=== PATIENT | male | born 1950 | race Caucasian/White ===

== ENCOUNTER → 2017-01-05 | Outpatient (CLI) | payer BC ==
[~2017-01-05] MED LIST: GADOBUTROL 10 ML VIAL IVP ONE; IOPAMIDOL (ISOVUE 370) 100 ML BTL IV ONE
== END ==
LOC: FIMAGING 11:58
PROVIDERS: ATTEND Internal Medicine
DX: H53.40 Unspecified visual field defects (principal); G31.9 Degenerative disease of nervous system, unspecified; I65.22 Occlusion and stenosis of left carotid artery; M50.31 Other cervical disc degeneration, high cervical region
CPT/HCPCS: A9585; Q9967

== ENCOUNTER 2017-03-02 13:44 | Day surgery (SDC) | payer BC ==
[2017-03-02] MEDS ORDERED: MIDAZOLAM 2 MG/2 ML VIAL IVP ONE (13:50)
[2017-03-02] MEDS ORDERED: BENZOCAINE UNIT DOSE SPRAY HURRICAINE MM ONE (13:50)
[2017-03-02] MEDS ORDERED: fentaNYL 100 MCG/2 ML INJ IVP ONE (13:50)
[2017-03-02] MEDS ORDERED: NS 1,000 ML IV ONE (13:50)
[2017-03-02] MEDS ORDERED: LIDOCAINE 1% 300 MG/30 ML SDV ONE (14:38)
[2017-03-02] MEDS ORDERED: LIDOCAINE 1% 300 MG/30 ML SDV IF ONE (15:00)
[2017-03-02] MEDS ORDERED: PROPOFOL 200 MG/20 ML VIAL ONE (15:47)
[2017-03-02] MEDS ORDERED: PROPOFOL/EMULSION 500 MG/50 ML BOTTLE IV ONE (16:42)
--- NOTE | 2017-03-02 20:40 | GPN ---
[f rep st] PROCEDURE NOTE DATE OF PROCEDURE: 03/02/2017 PROCEDURE PERFORMED: Implantable loop recorder. INDICATION FOR PROCEDURE: Cryptogenic stroke. HISTORY OF PRESENT ILLNESS: The patient is a pleasant 67-year-old gentleman with recent neurologic event consistent with cryptogenic stroke. He has no history of atrial fibrillation but has risk fac tors for atrial fibrillation. Workup to date did not demonstrate any atrial fibrillation on Holter monitoring, and subsequently has been arranged for implantable loop recorder. DESCRIPTION OF PROCEDURE: After informed consent was obtained, patient was prepped and draped in a sterile fashion. Using 1% lidocaine, the 5th intercostal space, 2 cm from midline was anesthetized with 1% lidocaine without epinephrine. Once appropriate level of localized anesthesia to the skin w as obtained, incision was made with the scalpel provided in the [employer] implantable loop recorder kit. This incision was modified with a scalpel blade. The loop recorder was inserted. Tract was m cain with the device. Device was deployed successfully without complications in appropriate position . Hemostasis was achieved. Steri-Strips were applied. A sterile dressing with Tegaderm was applie d. Postprocedure, device was interrogated demonstrating appropriate capture of P-waves. Standardiz ed settings were obtained. The patient tolerated the procedure well without incident. CONCLUSION: 1. Successful implantable loop recorder deployment. 2. [employer] implantable loop LINQ device. PLAN: 1. Patient will follow up in the office in 1 week for wound and device check. 2. Patient has been given postoperative wound instructions. /[id number]/MODL
--- NOTE | 2017-03-02 20:45 | GPN ---
[f rep st] PROCEDURE NOTE DATE OF PROCEDURE: 03/02/2017 PROCEDURE PERFORMED: Transesophageal echocardiogram. INDICATION FOR THE PROCEDURE: History of cryptogenic stroke and evidence of patent foramen ovale on transthoracic echocardiogram. After an informed consent was obtained for both BARI and anesthesia, the patient was prepped for a tr ansesophageal echocardiogram. With the assistance of anesthesia, he received propofol for sedation. Once appropriate level of sedation was achieved, BARI probe was passed without incident. He did malloy ve a brief period where oxygen saturations drifted into the 60s, requiring removal of BARI probe and brief period of bagging respirations with supplemental oxygen. Once oxygen levels normalized, BARI p robe was again reinserted without complications. BARI probe was used to take images of all cardiac s tructures. Please see complete echocardiogram report for full details. Agitated saline contrast study was performed, demonstrating shunting from the right to the left atri um. FINDINGS: Consistent with patent foramen ovale. There are no other significant abnormalities noted . BARI probe was removed without incident. There were no postprocedure complications. At the time of this dictation, he was awaking from propofol without incident. FINDINGS: 1. Atrial septal aneurysm. 2. Patent foraminal ovale with positive agitated saline contrast study. PLAN: 1. Patient will follow up in the office as an outpatient. 2. Implantable loop recorder has been placed earlier today to monitor heart rates in the setting of cryptogenic stroke. /[id number]/MODL
--- NOTE | 2017-03-06 10:52 | ECHO ---
[id number] + + [address] : : [place] [address] : : [phone] + + Transesophageal Echocardiographic Report + ----+ :Name: SHERRI GRAHAM Date: 03/02/2017 03:15 PM : : Hospital Admission Number: [id number] Location: [facility]: :: 1950 Gender: Male : :Age: 67 yrs Race: WH : :Reason For Study: R/O thrombus : + ----+ Left Ventricle The left ventricle is borderline dilated. Left ventricular systolic function is normal. Ejection Fraction = 60-65%%. Right Ventricle The right ventricular systolic function is normal. Atria The atrial septum is aneurysmal. Injection of contrast documented an interatrial shunt. A patent foramen ovale is present. No thrombus is detected in the left atrial appendage. Mitral Valve The mitral valve is normal in structure and function. There is no evidence of mitral valve prolapse. There is trace mitral regurgitation. Tricuspid Valve The tricuspid valve is normal in structure and function. Aortic Valve The aortic valve is trileaflet. There is no aortic insufficiency. Vessels Mild atherosclerotic plaque(s) in the ascending aorta. Pericardium There is no pericardial effusion. Conclusion A 2D transesophageal echocardiogram with color flow Doppler was performed. The atrial septum is aneurysmal. No thrombus is detected in the left atrial appendage. There is trace mitral regurgitation. Mild atherosclerotic plaque(s) in the ascending aorta. Injection of contrast documented an interatrial shunt. A patent foramen ovale is present. The left ventricle is borderline dilated. Left ventricular systolic function is normal. Ejection Fraction = 60-65%%. Final Reading Physician: Joey Vides electronically signed on 03/06/2017 10:51 AM Ordering Physician: Joey Vides Performed By: Joey Vides
== END 2017-03-02 18:39 | disposition home or self-care (01) ==
LOC: FCATH 13:44
PROVIDERS: ATTEND Internal Medicine Cardiovascular Disease
PROC: 0JH Subcutaneous Tissue and Fascia, Insertion (ICD-10-PCS; principal; 2017-03-02)
PROC: B246ZZ4 Ultrasonography of Right and Left Heart, Transesophageal (ICD-10-PCS; 2017-03-02)
DX: Q21.1 Atrial septal defect (principal); I25.3 Aneurysm of heart; I69.398 Other sequelae of cerebral infarction; H53.8 Other visual disturbances; I10 Essential (primary) hypertension; I77.9 Disorder of arteries and arterioles, unspecified; G43.909 Migraine, unspecified, not intractable, without status migrainosus; E55.9 Vitamin D deficiency, unspecified; E78.5 Hyperlipidemia, unspecified; G47.33 Obstructive sleep apnea (adult) (pediatric); E66.9 Obesity, unspecified; Z68.33 Body mass index [BMI] 33.0-33.9, adult; Z79.82 Long term (current) use of aspirin; Z82.49 Family history of ischemic heart disease and other diseases of the circulatory system
CPT/HCPCS: C1764; J2704

== ENCOUNTER 2017-05-20 12:29 | Day surgery (SDC) | payer BC ==
[2017-05-20] MEDS ORDERED: LIDOCAINE 1% 300 MG/30 ML SDV ONE (12:45)
[2017-05-20] MEDS ORDERED: BACITRACIN IRRIGATION/NS 50,000 UNITS/1,000 ML BTL IRR ONE (13:15)
--- NOTE | 2017-05-20 14:20 | GPN ---
[f rep st] PROCEDURE NOTE DATE OF PROCEDURE: 05/20/2017 [employer]: CHERYL Rai. ANESTHESIA: None. PREOPERATIVE DIAGNOSIS: LINQ device eroding through skin. POSTOPERATIVE DIAGNOSIS: LINQ device eroding through skin. NAME OF PROCEDURE: Excision of LINQ device, left chest. ESTIMATED BLOOD LOSS: 5 cc. SPECIMENS: None. INDICATIONS: The patient is a 67-year-old man who had a LINQ device placed for cardiac monitoring. It eroded through the skin. He presents for removal. DESCRIPTION OF PROCEDURE: The patient was in CVC. He was consented for the procedure. A time-out was performed. I prepped the skin with chlorhexidine and draped it with towels. I made a longitudi nal incision over the device. I excised the device and then excised the encapsulating area. Hemost asis was achieved with direct pressure. Mildred, Hydrofera Blue Ready and Mepilex border were placed . He tolerated the procedure well. He will return to our office in 4-5 days for a wound check and dressing change. /[id number]/MODL
== END 2017-05-20 15:00 | disposition home or self-care (01) ==
LOC: FCATH 12:29
PROVIDERS: ATTEND Internal Medicine Cardiovascular Disease
PROC: 0JPT02Z Removal of Monitoring Device from Trunk Subcutaneous Tissue and Fascia, Open Approach (ICD-10-PCS; principal; 2017-05-20)
DX: T82.897A Other specified complication of cardiac prosthetic devices, implants and grafts, initial encounter (principal); I63.9 Cerebral infarction, unspecified; Q21.1 Atrial septal defect; I10 Essential (primary) hypertension; E78.4 Other hyperlipidemia; R00.0 Tachycardia, unspecified; I49.1 Atrial premature depolarization